=== PATIENT | female | born 1980 | race Caucasian/White ===

== ENCOUNTER 2016-07-06 21:45 | Emergency (ER) | payer MEDICAID, OTHER ==
[~2016-07-06 21:45] MED LIST: /MOM400 PO; /ONDA4TA OR; /OXYB10XLT PO; ALLE25CA OR; AMBI10TA PO; ANBEEL MT; ASPI1TAB PO; ASPI325T PO; ATIV1TAB10 PO; B COTAB5 PO; BACITAB3 PO; BENA25CA2 PO; BENT10CA PO; CEFD1CAP8 PO; CEFD300CAP PO; CYMB1CAP PO; DICL13PA TOP; DIPH50CA PO; DIPH50TA3 PO; DOXY50CA OR; DULC10SU2 PO; DULC10SU2 PR; DULC5TAB PO; ECOT81TA5 PO; FLAG250T OR; FLAG500T PO; FLON0.054; FLON1SPR; FOLI1TAB2 PO; HEPA1INJ IV; HYDR25T PO; IBUP600T OR; IBUPOTC PO; IRON CR PO; K-TA10TA2 PO; KLON0.5T PO; LACT10SO29 PO; LEXA1TAB PO; LIDO5DIS36 TD; LIORESAL PO; LYRI150C PO; LYRI200C PO; MAXA5TAB OR; MICR10CA PO; MILKSUS PO; MIRA3350 PO; MOM30SS PO; MYLI40DR PO; NORCOTAB PO; OXYC10TA12 PO; OXYC15TA76 PO; OXYC1SOL PO; OXYC1TAB55 PO; OXYC20TA21 PO; OXYC30TA4 PO; OXYIR PO; PAXI10TA2 PO; PERC5TAB8 OR; PERCOCET PO; PHEN1SUP6 PR; PHEN25IN3 PO; PHEN25IN3 PR; PROBCAP4 PO; PROM-190 PO; PROT1TAB2 PO; PROTPAK PO; PROZ20CA11 PO; PYRI200T5 PO; REGL10TA6 PO; REGLAN; ROCE1INJ IV; ROXI15TA12 PO; SERO1TAB3 PO; SIMV20TA2 PO; SKEL-29 PO; SLF IV; SUCR1SUS PO; TRAZ100T4 PO; TRAZ50TA4 PO; TYLE325T5 PO; TYLE650T30 PO; VALI5TAB PO; VANC1CAP6 PO; VANC250C2 PO; VANC50SOL PO; VITA1TAB23 PO; XANAFLEX PO; ZOST0.25 TOP; [UNRECOGNIZED DRUG - CODE] TOP
[2016-07-07] MEDS ORDERED: predniSONE 20 MG TAB As Ordered ONE (01:39)
[2016-07-07] MEDS ORDERED: diazePAM 5 MG TAB As Ordered ONE (01:40)
[2016-07-07] MEDS ORDERED: OXYCODONE/APAP 5MG/325MG(BULK) 1 TAB TAB As Ordered ONE (02:49)
--- NOTE | 2016-07-07 03:05 | EDDOCDS ---
Physician Documentation [facility] Name: Meir Alan Age: 35 yrs Sex: Female : 1980 Arrival Date: 07/06/2016 Time: 21:45 Bed 7 Private [facility]: [facility] Disposition: 07/07/16 02:45 Discharged to Home/Self Care. Impression: Low back pain. - Condition is Stable. - Discharge Instructions: Back Pain, Adult, Back Pain, Adult, [id number]. - Prescriptions for Percocet 5- 325 mg Oral Tablet - take 1 tablet by ORAL route every 6 hours As needed MDD: 4 tabs; 20 tablet. Valium 5 mg Oral Tablet - take 1 tablet by ORAL route every 8 hours As needed MDD: 3 tabs; 20 tablet. Prednisone 20 mg Oral Tablet - take 2 tablet by ORAL route once daily for 5 days; 10 tablet. - Medication Reconciliation, Local Pharmacy Hours form. - Follow up: [facility]; When: Call to arrange an appointment; Reason: Continuance of care. - Problem is an acute exacerbation. - Symptoms have improved. Historical: - Allergies: all cillins; Azithromycin; betamethasone; Bactrim; Betamethasone Valerate; CEPHALOSPORINS; Cipro PO; Ciprofloxacin; Darvocet-N 100; Darvon; Demerol; Gentamicin; Keflex; Macrobid; Morphine; PENICILLINS; Rocephin; SULFA (SULFONAMIDES); Toradol; Tramadol HCl; Vancomycin; Zofran; - Home Meds: 1. Lyrica 200mg Oral 3 times per day 2. Tylenol 325 mg Oral tab 2 tabs every 6 hours 3. aspirin 325 mg Oral tab 1 tab once daily (Last dose: 07/06/2016 17:00) 4. escitalopram oxalate 10 mg oral tab 1 tab once daily 5. propantheline 15 mg Oral tab 1 tab 3 times per day - PMHx: Anxiety; breast and cervical cancer; c diff; Cardiac arrest; freq pylo; hydronephrosis and ureter; infected port; Interstitial Cystitis; Kidney stones; [place] x2; Migraine Headaches; neurogenic bladder; Pseudoseizures; TIA's; UTi's; - PSHx: Bladder pacemaker; Hysterectomy; cystoscopy; kidney stents; Laparoscopy; Cholecystectomy; Lithotripsy; PFO closure; infusaport; ruptured infusa port with removal; - Social history: Smoking status: Patient uses tobacco products, current some day smoker. No barriers to communication noted, The patient speaks fluent Kazakh, Speaks appropriately for age. - Family history: No immediate family members are acutely ill. - : The pt / caregiver states he / she is not on anticoagulants. Home medication list is obtained from the patient. - Exposure Risk Screening:: None identified. 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 4 in. (162.56 cm) (R); Pain 9/10; 07/07 02:50 BP 104 / 62; Pulse 79; Resp 18; Temp 96.9(O); Pulse Ox 98% on R/A; Pain 8/10; al 07/06 21:47 Body Mass Index 20.60 (54.43 kg, 162.56 cm) gr2 MDM: 01:26 predniSONE 40 mg PO once; administer with food or milk ordered. mm11 01:26 Diazepam 5 mg PO once ordered. mm11 01:27 Abdomen, Flat\E\Upright,PA Chest Ordered. EDMS 01:39 [facility] Payment Agreement was scanned into [employer] and attached to record. jp5 01:39 Financial registration complete. jp5 02:43 oxyCODONE-acetaminophen 4 pack 5 mg-325 mg 1 packets PO once; Dispense with pt, take as mm11 per instruction on package ordered. Administered Medications: 01:50 Drug: Diazepam 5 mg [diazepam 5 mg tablet (1 tabs)] Route: PO; mv5 02:56 Follow up: Response: No Adverse Reaction mv5 02:02 Drug: predniSONE 40 mg [prednisone 20 mg tablet (2 tabs)] Route: PO; mv5 02:56 Follow up: Response: No Adverse Reaction mv5 02:58 Drug: oxyCODONE-acetaminophen 4 pack 1 packets [oxycodone-acetaminophen 5 mg-325 mg mv5 tablet (1 tabs)] {Co-Signature: lyla (Lary Clifton RN).} Route: PO; Signatures: Dispatcher [employer] Mauricio Phelps, DO mm11 Liliam Roland, RN RN sls1 Oscar Merritt jp5 Betty Weldon RN RN mv5 Lary arita The chart was reviewed and I authenticate all verbal orders and agree with the evaluation and treatment provided.Attachments: 01:39 [facility] Payment Agreement jp5 MTDD
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
--- NOTE | 2016-07-07 08:04 | REP ---
Clinical: Pain . Comparison: 08/21/2015 . Technique: PA and lateral. Findings: The mediastinum and cardiac silhouette are normal. The lung solis are clear and without acute consolidation, effusion, or pneumothorax. The skeletal structures are intact and normal. Impression: 1. No acute cardiopulmonary process. Signed by Irvin Buck MD 07/07/2016 07:55 A
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
--- NOTE | 2016-07-09 04:05 | EDDOCDS ---
Physician Documentation [facility] Name: Meir Alan Age: 35 yrs Sex: Female : 1980 Arrival Date: 07/06/2016 Time: 21:45 Bed 7 Private MD: [facility] Disposition: 07/07/16 02:45 Discharged to Home/Self Care. Impression: Low back pain. - Condition is Stable. - Discharge Instructions: Back Pain, Adult, Back Pain, Adult, [id number]. - Prescriptions for Percocet 5- 325 mg Oral Tablet - take 1 tablet by ORAL route every 6 hours As needed MDD: 4 tabs; 20 tablet. Valium 5 mg Oral Tablet - take 1 tablet by ORAL route every 8 hours As needed MDD: 3 tabs; 20 tablet. Prednisone 20 mg Oral Tablet - take 2 tablet by ORAL route once daily for 5 days; 10 tablet. - Medication Reconciliation, Local Pharmacy Hours form. - Follow up: [facility]; When: Call to arrange an appointment; Reason: Continuance of care. - Problem is an acute exacerbation. - Symptoms have improved. Historical: - Allergies: all cillins; Azithromycin; betamethasone; Bactrim; Betamethasone Valerate; CEPHALOSPORINS; Cipro PO; Ciprofloxacin; Darvocet-N 100; Darvon; Demerol; Gentamicin; Keflex; Macrobid; Morphine; PENICILLINS; Rocephin; SULFA (SULFONAMIDES); Toradol; Tramadol HCl; Vancomycin; Zofran; - Home Meds: 1. Lyrica 200mg Oral 3 times per day 2. Tylenol 325 mg Oral tab 2 tabs every 6 hours 3. aspirin 325 mg Oral tab 1 tab once daily (Last dose: 07/06/2016 17:00) 4. escitalopram oxalate 10 mg oral tab 1 tab once daily 5. propantheline 15 mg Oral tab 1 tab 3 times per day - PMHx: Anxiety; breast and cervical cancer; c diff; Cardiac arrest; freq pylo; hydronephrosis and ureter; infected port; Interstitial Cystitis; Kidney stones; [place] x2; Migraine Headaches; neurogenic bladder; Pseudoseizures; TIA's; UTi's; - PSHx: Bladder pacemaker; Hysterectomy; cystoscopy; kidney stents; Laparoscopy; Cholecystectomy; Lithotripsy; PFO closure; infusaport; ruptured infusa port with removal; - Social history: Smoking status: Patient uses tobacco products, current some day smoker. No barriers to communication noted, The patient speaks fluent Uzbek, Speaks appropriately for age. - Family history: No immediate family members are acutely ill. - : The pt / caregiver states he / she is not on anticoagulants. Home medication list is obtained from the patient. - Exposure Risk Screening:: None identified. MEDICAL RECEPTION SPECIALIST: 07/06 22:03 LMP N/A - Hysterectomy sls1 Vital Signs: 21:47 BP 111 / 68; Pulse 99; Resp 18 S; Temp 99.1(O); Pulse Ox 99% on R/A; Weight 54.43 kg / gr2 120 lbs (R); Height 5 ft. 4 in. (162.56 cm) (R); Pain 9/10; 07/07 02:50 BP 104 / 62; Pulse 79; Resp 18; Temp 96.9(O); Pulse Ox 98% on R/A; Pain 8/10; al 07/06 21:47 Body Mass Index 20.60 (54.43 kg, 162.56 cm) gr2 MDM: 01:26 predniSONE 40 mg PO once; administer with food or milk ordered. mm11 01:26 Diazepam 5 mg PO once ordered. mm11 01:27 Abdomen, Flat\E\Upright,PA Chest Ordered. EDMS 01:39 [facility] Payment Agreement was scanned into [employer] and attached to record. jp5 01:39 Financial registration complete. jp5 02:43 oxyCODONE-acetaminophen 4 pack 5 mg-325 mg 1 packets PO once; Dispense with pt, take as mm11 per instruction on package ordered. 12:30 T-Sheet-- Draft Copy was scanned into [employer]zzle and attached to record. gb Administered Medications: 01:50 Drug: Diazepam 5 mg [diazepam 5 mg tablet (1 tabs)] Route: PO; mv5 02:56 Follow up: Response: No Adverse Reaction mv5 02:02 Drug: predniSONE 40 mg [prednisone 20 mg tablet (2 tabs)] Route: PO; mv5 02:56 Follow up: Response: No Adverse Reaction mv5 02:58 Drug: oxyCODONE-acetaminophen 4 pack 1 packets [oxycodone-acetaminophen 5 mg-325 mg mv5 tablet (1 tabs)] {Co-Signature: lyla (Lary Clifton RN).} Route: PO; Signatures: Dispatcher MedHost EDDanette Vega, Reg Reg gb Mauricio Benitez, DO DO mm11 Liliam Roland, RN RN sls1 Oscar Merritt jp5 Betty Weldon RN RN mv5 Lary arita The chart was reviewed and I authenticate all verbal orders and agree with the evaluation and treatment provided.Attachments: 01:39 [facility] Payment Agreement jp5 12:30 T-Sheet-- Draft Copy gb Chart Complete MTDD
--- NOTE | 2016-07-09 04:05 | EDDOCDS ---
Physician Documentation [facility] Name: Meir Alan Age: 35 yrs Sex: Female : 1980 Arrival Date: 07/06/2016 Time: 21:45 Bed 7 Private MD: [facility] Disposition: 07/07/16 02:45 Discharged to Home/Self Care. Impression: Low back pain. - Condition is Stable. - Discharge Instructions: Back Pain, Adult, Back Pain, Adult, [id number]. - Prescriptions for Percocet 5- 325 mg Oral Tablet - take 1 tablet by ORAL route every 6 hours As needed MDD: 4 tabs; 20 tablet. Valium 5 mg Oral Tablet - take 1 tablet by ORAL route every 8 hours As needed MDD: 3 tabs; 20 tablet. Prednisone 20 mg Oral Tablet - take 2 tablet by ORAL route once daily for 5 days; 10 tablet. - Medication Reconciliation, Local Pharmacy Hours form. - Follow up: [facility]; When: Call to arrange an appointment; Reason: Continuance of care. - Problem is an acute exacerbation. - Symptoms have improved. Historical: - Allergies: all cillins; Azithromycin; betamethasone; Bactrim; Betamethasone Valerate; CEPHALOSPORINS; Cipro PO; Ciprofloxacin; Darvocet-N 100; Darvon; Demerol; Gentamicin; Keflex; Macrobid; Morphine; PENICILLINS; Rocephin; SULFA (SULFONAMIDES); Toradol; Tramadol HCl; Vancomycin; Zofran; - Home Meds: 1. Lyrica 200mg Oral 3 times per day 2. Tylenol 325 mg Oral tab 2 tabs every 6 hours 3. aspirin 325 mg Oral tab 1 tab once daily (Last dose: 07/06/2016 17:00) 4. escitalopram oxalate 10 mg oral tab 1 tab once daily 5. propantheline 15 mg Oral tab 1 tab 3 times per day - PMHx: Anxiety; breast and cervical cancer; c diff; Cardiac arrest; freq pylo; hydronephrosis and ureter; infected port; Interstitial Cystitis; Kidney stones; [place] x2; Migraine Headaches; neurogenic bladder; Pseudoseizures; TIA's; UTi's; - PSHx: Bladder pacemaker; Hysterectomy; cystoscopy; kidney stents; Laparoscopy; Cholecystectomy; Lithotripsy; PFO closure; infusaport; ruptured infusa port with removal; - Social history: Smoking status: Patient uses tobacco products, current some day smoker. No barriers to communication noted, The patient speaks fluent Faroese, Speaks appropriately for age. - Family history: No immediate family members are acutely ill. - : The pt / caregiver states he / she is not on anticoagulants. Home medication list is obtained from the patient. - Exposure Risk Screening:: None identified. INSTRUCTOR PHYSICAL: 07/06 22:03 LMP N/A - Hysterectomy sls1 Vital Signs: 21:47 BP 111 / 68; Pulse 99; Resp 18 S; Temp 99.1(O); Pulse Ox 99% on R/A; Weight 54.43 kg / gr2 120 lbs (R); Height 5 ft. 4 in. (162.56 cm) (R); Pain 9/10; 07/07 02:50 BP 104 / 62; Pulse 79; Resp 18; Temp 96.9(O); Pulse Ox 98% on R/A; Pain 8/10; al 07/06 21:47 Body Mass Index 20.60 (54.43 kg, 162.56 cm) gr2 MDM: 01:26 predniSONE 40 mg PO once; administer with food or milk ordered. mm11 01:26 Diazepam 5 mg PO once ordered. mm11 01:27 Abdomen, Flat\E\Upright,PA Chest Ordered. EDMS 01:39 [facility] Payment Agreement was scanned into [employer] and attached to record. jp5 01:39 Financial registration complete. jp5 02:43 oxyCODONE-acetaminophen 4 pack 5 mg-325 mg 1 packets PO once; Dispense with pt, take as mm11 per instruction on package ordered. 12:30 T-Sheet-- Draft Copy was scanned into [employer] and attached to record. gb Administered Medications: 01:50 Drug: Diazepam 5 mg [diazepam 5 mg tablet (1 tabs)] Route: PO; mv5 02:56 Follow up: Response: No Adverse Reaction mv5 02:02 Drug: predniSONE 40 mg [prednisone 20 mg tablet (2 tabs)] Route: PO; mv5 02:56 Follow up: Response: No Adverse Reaction mv5 02:58 Drug: oxyCODONE-acetaminophen 4 pack 1 packets [oxycodone-acetaminophen 5 mg-325 mg mv5 tablet (1 tabs)] {Co-Signature: lyla (Lary Clifton RN).} Route: PO; Signatures: Dispatcher MedHost EDDanette Vega, Reg Reg gb Mauricio Benitez, DO DO mm11 Liliam Roland, RN RN sls1 Oscar Merritt jp5 Betty Weldon RN RN mv5 Lary arita The chart was reviewed and I authenticate all verbal orders and agree with the evaluation and treatment provided.Attachments: 01:39 [facility] Payment Agreement jp5 12:30 T-Sheet-- Draft Copy gb Chart Complete MTDD
== END 2016-07-07 03:04 | disposition home or self-care (01) ==
LOC: M ED 21:45
DX: M54.5 Low back pain (principal); F41.9 Anxiety disorder, unspecified; Z85.3 Personal history of malignant neoplasm of breast; Z85.41 Personal history of malignant neoplasm of cervix uteri; Z86.19 Personal history of other infectious and parasitic diseases; Z86.74 Personal history of sudden cardiac arrest; N10 Acute pyelonephritis; I25.2 Old myocardial infarction; Z86.73 Personal history of transient ischemic attack (TIA), and cerebral infarction without residual deficits; N30.10 Interstitial cystitis (chronic) without hematuria; N13.30 Unspecified hydronephrosis; G40.89 Other seizures; Z95.0 Presence of cardiac pacemaker; Z96.0 Presence of urogenital implants; Z72.0 Tobacco use; Z79.82 Long term (current) use of aspirin; Z79.899 Other long term (current) drug therapy; Z88.0 Allergy status to penicillin; Z88.1 Allergy status to other antibiotic agents; Z88.5 Allergy status to narcotic agent; Z88.2 Allergy status to sulfonamides; Z88.8 Allergy status to other drugs, medicaments and biological substances; Z88.6 Allergy status to analgesic agent

== ENCOUNTER 2016-12-29 23:15 | Inpatient (IN) | payer OTHER ==
[~2016-12-29] VITALS: Ht 162.6 cm; Wt 68.1 kg
[~2016-12-29 23:15] MED LIST changes: +BACITAB PO; -BACITAB3 PO; -FOLI1TAB2 PO; +FOLI1TAB4 PO; +HYDR-3363 PO; -HYDR25T PO; -LIDO5DIS36 TD; +LIDO5DIS41 TD; +OXYC-403 PO; -OXYC1TAB55 PO; -OXYC20TA21 PO; +OXYC20TA40 PO; +PAXI10TA12 PO; -PAXI10TA2 PO; +PYRI1TAB5 PO; -PYRI200T5 PO; -SKEL-29 PO; +SKEL800T97 PO; +TRAZ-136 PO; -TRAZ100T4 PO; +TRAZ50TA11 PO; -TRAZ50TA4 PO
[2016-12-30 01:30] LABS: MICROSCOPIC INDICATED? MAN YES (NO)
[2016-12-30 01:38] LABS: SQUAMOUS EPITHELIAL CELL URINE SMALL AMOUNT /hpf (SMALL AMT)
[2016-12-30 01:39] LABS: BACTERIA, URINE SMALL AMOUNT; HYALINE CAST, URINE NONE SEEN /lpf (0-1); MICROSCOPIC EXAM PERFORMED
[2016-12-30] MEDS ORDERED: NS 1,000 ML IV ONE (05:30)
[2016-12-30] MEDS ORDERED: HYDROmorphone HCL 1 MG/ML SYRINGE (J1170) IV ONE (06:15)
[2016-12-30] MEDS ORDERED: GASTROGRAFIN SOLUTION 30ML (Q9963) PO ONE ×2 (07:00)
[2016-12-30 07:29] LABS: ALBUMIN/GLOBULIN RATIO 1.08 (1.00-1.93); ALKALINE PHOSPHATASE 148 U/L (45-117); ALT/SGPT 116 U/L (12-78); AMYLASE 79 U/L (25-115); ANION GAP 8 MEQ/L (8-16); AST/SGOT 34 U/L (15-37); BILIRUBIN,DIRECT 0.2 MG/DL (0.0-0.2); BILIRUBIN,TOTAL 0.7 MG/DL (0.2-1.0); BLOOD UREA NITROGEN 17 MG/DL (7-18); CALCIUM LEVEL 9.3 MG/DL (8.5-10.1); CARBON DIOXIDE LEVEL 24 MEQ/L (21-32); CHLORIDE LEVEL 107 MEQ/L (98-107); CREATININE FOR GFR 0.72 MG/DL (0.55-1.02); GLOMERULAR FILTRATION RATE > 60.0 (>60); GLUCOSE, FASTING 90 MG/DL (70-105); POTASSIUM SERUM 3.7 MEQ/L (3.5-5.1); SODIUM LEVEL 139 MEQ/L (136-145); TOTAL PROTEIN 7.7 GM/DL (6.4-8.2)
[2016-12-30] MEDS ORDERED: PROMETHAZINE INJ 25 MG/ML VIAL (J2550) IM ONE (07:45)
[2016-12-30] MEDS ORDERED: HYDROmorphone HCL 1 MG/ML SYRINGE (J1170) SC ONE (07:45)
[2016-12-30 08:06] LABS: BASO % 0.5 % (0.0-1.0); EOS # 0.1 K/mm3 (0.0-0.50); LARGE UNSTAINED CELL # 0.1 K/mm3 (0.0-0.4); LARGE UNSTAINED CELL % 1.4 % (0.0-4.0); LYMPH # 2.5 K/mm3 (1.5-4.5); LYMPH % 37.1 % (24.0-44.0); MEAN CORPUSCULAR HEMOGLOBIN 32.4 pg (27.0-33.0); MEAN CORPUSCULAR HGB CONC 35.4 g/dl (32.0-36.5); MEAN CORPUSCULAR VOLUME 91.6 fl (80.0-96.0); MONO # 0.4 K/mm3 (0.0-0.8); MONO % 5.1 % (0.0-5.0); NEUTROPHILS # 3.7 K/mm3 (1.8-7.7); NEUTROPHILS % 53.9 % (36.0-66.0); PLATELET COUNT, AUTOMATED 266 k/mm3 (150-450); RED CELL DISTRIBUTION WIDTH 12.6 % (11.5-14.5); WHITE BLOOD COUNT 6.8 K/mm3 (4.0-10.0)
[2016-12-30] MEDS ORDERED: VITATAB11 PO (08:22)
[2016-12-30] MEDS ORDERED: BENA25CA4 PO (08:22)
[2016-12-30] MEDS ORDERED: IRON65TA PO (08:22)
[2016-12-30] MEDS ORDERED: FOLI1TAB4 PO (08:22)
[2016-12-30] MEDS ORDERED: FAMOTIDINE IV BAG 20 MG in APPROPRIATE DILUENT 1 EA IV SCH (09:00)
--- NOTE | 2016-12-30 09:03 | REP ---
CT study abdomen pelvis without IV but with oral contrast: History: Pancreatitis. Right flank and lower abdominal pain. Comparison CT study: January 23, 2016. CT findings: There is an intra-atrial septal closure device visible at the base of the heart. Preliminary first responder radiograph also shows clips in right upper quadrant and a implanted trans sacral nerve stimulator projecting in the left lower quadrant. The bowel gas pattern is unremarkable. The lung bases are essentially clear except for some minimal linear fibrosis. The liver and the spleen are normal in size and homogeneous in texture. No adrenal lesion is seen on either side. No pancreatic enlargement mass or cyst is seen. There is moderate left-sided hydronephrosis again seen. No stone is appreciated. The left-sided hydronephrosis is unchanged from prior CT studies including June 08, 2015. No retroperitoneal mass or adenopathy is seen. A normal appendix is noted in the right pelvis. The uterus is surgically absent. Urinary bladder is unremarkable. Small and large intestinal bowel loops are unremarkable. No abdominal wall defect is seen. No bony destructive lesion is observed. There are some degenerative changes at the symphysis pubis. Impression: 1. Stable left-sided hydronephrosis without visible stone. 2. Status post hysterectomy, atrial septal defect closure, cholecystectomy, and transsacral neurostimulator placement. Normal appendix seen. No acute abdominal or pelvic abnormality. Signed by Kyle Rios MD 12/30/2016 09:12 A
[2016-12-30] MEDS ORDERED: ACETAMINOPHEN TAB 650MG DOSE (2X325MG) PO PRN (10:30)
[2016-12-30] MEDS: HYDROmorphone HCL 1 MG/ML SYRINGE (J1170) IV PRN ×4 (11:59→22:19)
[2016-12-30] MEDS: KCL 20MEQ in NS 1000ML 1,000 ML IV SCH ×3 (12:04→22:20)
--- NOTE | 2016-12-30 12:54 | REP ---
ULTRASOUND OF THE ABDOMEN: Real-time sonographic evaluation of the abdomen performed. Comparison made with multiple prior ultrasound and CT exams. Patient is status post cholecystectomy. There is no intrahepatic or extrahepatic biliary dilatation, common bile duct measuring 4 mm in diameter. Liver demonstrates homogenous echotexture with no definite mass. Pancreas as visualized is grossly unremarkable, but it is not completely visualized due to overlying bowel gas. Spleen is normal in size with no intrinsic abnormality, having a length of 9.3 cm. Kidneys are normal in size and echotexture, right kidney measuring 11.3 x 4.5 x 3.4 cm and left kidney 10.8 x 4.4 x 3.7 cm. There is no hydronephrosis. There is again an extrarenal pelvis of the left kidney which is seen on multiple prior exams. The abdominal aorta is normal in caliber with no aneurysm. Maximum AP diameter is in the mid aspect 2.5 cm in diameter. No ascites is seen. IMPRESSION: Status post cholecystectomy. There is again evidence of an extrarenal pelvis of the left kidney without hydronephrosis. No ascites or other significant abnormality. Signed by Hammad Arnold MD 12/30/2016 05:09 P
--- NOTE | 2016-12-30 12:55 | REP ---
CHEST: Single view of the chest is performed. There is a right central venous catheter with the tip in the superior vena cava. There is no pneumothorax. There is no acute infiltrate. The heart is normal in size. IMPRESSION: Right central venous catheter with the tip in the superior vena cava. No pneumothorax. Signed by Hammad Arnold MD 12/30/2016 05:10 P
[2016-12-30 13:45] VITALS: BP 134/71
[2016-12-30] MEDS: SENOKOT S TAB PO SCH ×2 (14:00→22:16)
[2016-12-30] MEDS ORDERED: diphenhydrAMINE 25 MG CAP PO PRN (14:30)
[2016-12-30] MEDS: LACTOBACILLUS ACIDOPHILUS CAP (BACID) PO SCH ×3 (15:09→22:15)
[2016-12-30] MEDS: FERROUS SULFATE 325MG TAB PO SCH (15:09)
[2016-12-30] MEDS: HEPARIN SOD (PORCINE) 5000 UNITS/ML VIAL SC SCH ×2 (15:09→22:17)
[2016-12-30] MEDS: FAMOTIDINE IV BAG 20 MG in APPROPRIATE DILUENT 1 EA IV SCH (15:09)
[2016-12-30] MEDS: FOLIC ACID 1 MG TAB PO SCH (15:16)
[2016-12-30] MEDS: VITAMIN B COMPLEX/VIT C CAP PO SCH (15:39)
--- NOTE | 2016-12-30 16:16 | RO ---
DATE OF PROCEDURE: 12/30/2016 PREPROCEDURE DIAGNOSIS: Poor venous access and pancreatitis. POSTPROCEDURE DIAGNOSIS: Poor venous access and pancreatitis. PROCEDURE: Right IJ triple lumen central line. SURGEON: Dr. Nohelia Gray WAREHOUSE ASSOCIATE: None. ANESTHESIA: 1% local lidocaine. SEDATION: None. VENTILATION: 3 liters nasal cannula. ESTIMATED BLOOD LOSS: 10 mL. DESCRIPTION OF PROCEDURE: The patient was placed in the supine position. The right side of the patient's neck was cleaned with Chloraprep. The patient was covered in a sterile manner. A sterile probe cover was used. The patient's right IJ was located. Subsequently, subcutaneous lidocaine was injected with ultrasound guidance and needle was inserted. Flash of blood was obtained. Needle was inserted with ultrasound guidance, flash of blood was obtained. Guidewire was inserted through the needle. The needle was removed. Guidewire position was confirmed with ultrasound in the patient's right IJ. Subsequently, triple lumen central line was placed via Seldinger technique. Site was dilated and triple lumen central line was inserted via Seldinger technique. Guidewire was removed. All three ports of the line were flushed and triple lumen central line was secured with clamps and stitches. X-ray was ordered for confirmation. Dressing was placed. The patient tolerated the procedure with no complications.
[2016-12-30] MEDS: PREGABALIN 100 MG CAP (LYRICA) PO SCH ×2 (16:36→22:16)
[2016-12-30 22:00] VITALS: BP 104/59
[2016-12-30] MEDS: PROMETHAZINE INJ 25 MG/ML VIAL (J2550) IM PRN (22:17)
--- NOTE | 2016-12-30 23:00 | HPE ---
DATE OF ADMISSION: 12/30/2016 PRIMARY CARE PROVIDER: Isiah Ackerman DO CHIEF COMPLAINT: 1. Abdominal pain. 2. Bilateral flank pain. 3. Nausea, vomiting, diarrhea. 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 Reported chills, but no fever detected. Maximum temperature (T-max) 99.8. Reported vomiting over the last 24 hours five times, nonbloody, nonbilious, with watery diarrhea for five times as well. As per patient, does not appear to be her normal Clostridium (C) difficile diarrhea. Denies any chest pain, pressure or discomfort. Denies fevers or chills. In the emergency room, attempt was made to start the patient on intravenous (IV). Unfortunately, was not able to. Subsequently, triple lumen central internal jugular (IJ) line was placed. The patient was found to have elevated lipase. Subsequently admitted for pancreatitis. Patient denies alcohol history. Has history of cholecystectomy. ALLERGIES: Report allergies to: 1. CLINDAMYCIN. 2. NITROFURANTOIN 3. PENICILLIN 4. QUINOLONE 5. DOXYCYCLINE 6. MEPERIDINE 7. MORPHINE 8. PROPOXYPHENE 9. GENTAMICIN 10. TORADOL 11. TRAMADOL 12. KEFLEX 13. SULFA ANTIBIOTICS 14. PROMETHAZINE 15. BETAMETHASONE 16. VANCOMYCIN 17. ZOFRAN PAST MEDICAL HISTORY: 1. History of endometriosis. 2. Hyperthyroidism that was resolved. 3. Transient ischemic attack (TIA). 4. Tachycardia. 5. Migraine headache. 6. Recurrent emesis. 7. Colitis. 8. Methicillin-resistant Staphylococcus aureus (MRSA). 9. Clostridium (C) difficile. 10. Neurogenic bladder. 11. Chronic abdominal pain. 12. Anxiety. 13. Miscarriages. 14. Nephrolithiasis. 15. History of recurrent pyelonephritis. 16. Hydronephrosis. 17. Hydroureter. 18. Fallopian tubes and ovarian cysts with cervical uterine dysplasia. 19. History of myocardiac injuries. 20. Cardiac arrest in the past. 21. Neuropathic pain. PAST SURGICAL HISTORY: 1. Right breast lumpectomy. 2. Hysterectomy. 3. Right laparoscopic ovarian cyst removal. 4. Patent foramen ovale repair. 5. Right carpal metatarsal relocation. 6. [id number]. 7. Cystoscopy. 8. Lithotripsy. 9. Cholecystectomy. 10. (C) section. 11. Dilation and curettage. 12. Esophagogastroduodenoscopy (EGD) and colonoscopies in the past. FAMILY HISTORY: Father with melanoma. Mother with breast cancer. SOCIAL HISTORY: Patient smokes 4 to 5 cigarettes per day for the past five years. Drinks only on holidays. Last alcoholic beverage intake was on . Denies any illicit drug use. REVIEW OF SYSTEMS: Reported epigastric and right upper quadrant abdominal pain, bilateral flank pain and nausea, vomiting and diarrhea. All other review of systems were negative. HOME MEDICATIONS: - vitamin B complex one tablet by mouth daily - Benadryl 25 mg by mouth every 4 hours as needed - folic acid 1 mg by mouth daily - iron 325 mg by mouth daily - Lyrica 200 mg by mouth three times a day VITAL SIGNS: Temperature 97.1, pulse 73, respirations 18, blood pressure 100/65, pulse oximetry 96% on room air. GENERAL: Patient alert and oriented times three. No acute distress. HEENT: Normocephalic, atraumatic. PULMONARY: Bilateral clear to auscultation. CARDIAC: Regular rate and rhythm. Normal S1, S2. ABDOMEN: Epigastric tenderness. Bilateral flank mildly tender. Normal bowel sounds. No rebound. No guarding. No White signs. EXTREMITIES: No clubbing, cyanosis or edema. Able to move all four extremities. NEUROLOGIC: No focal deficits. LABORATORY: WBC 6.8, hemoglobin and hematocrit (H and H) 14.9/42.1, platelets 266. Chemistry: Sodium 139, potassium 3.7, chloride 107, bicarbonate 24, BUN 17, creatinine 0.73, lipase 1155. ASSESSMENT AND PLAN: This is a 36-year-old female patient with underlying medical history of endometriosis, history of resolved hyperthyroidism, transient ischemic attack (TIA), migraine headache, recurrent emesis, colitis, Methicillin-resistant Staphylococcus aureus (MRSA), Clostridium (C) difficile, neurogenic bladder, chronic abdominal pain, anxiety, miscarriages, nephrolithiasis, recurrent hydronephrosis with hydroureter, ovarian cysts, myocardiac injuries, uterine dysplasia, recurrent urinary tract infection (UTI), neuropathic pain, admitted for acute pancreatitis with nausea, vomiting, abdominal pain, and diarrhea. PROBLEMS: 1. Nausea, vomiting and diarrhea. Likely secondary to acute pancreatitis. Follow up gastrointestinal (GI) panel. Follow up electrolytes. Nothing by mouth. Intravenous (IV) fluids. Pepcid. Pain medication as prescribed. 2. Left hydroureter with no stone. Urinalysis (UA) is negative. CT appreciated. Case discussed with Dr. Cerrato. Recommend outpatient follow up for repeat of imaging study for resolution. Likely, patient passed a stone which was not visible on the images. Given that patient had normal kidney functions, will recommend outpatient followup as per Dr. Cerrato. IV fluids for hydration. 3. Deep venous thrombosis (DVT) prophylaxis. Heparin subcutaneously. 4. Transaminitis. Likely associated with acute pancreatitis. Patient has no bilirubin elevation. Ultrasound of the abdomen appreciated. CT has been appreciated. DISPOSITION PLANNING. Pending clinical improvement. Monitor. Advance diet as tolerated.
[2016-12-31] MEDS: FAMOTIDINE IV BAG 20 MG in APPROPRIATE DILUENT 1 EA IV SCH ×2 (02:20→14:58)
[2016-12-31] MEDS: HYDROmorphone HCL 1 MG/ML SYRINGE (J1170) IV PRN ×7 (02:21→23:05)
[2016-12-31] MEDS: KCL 20MEQ in NS 1000ML 1,000 ML IV SCH ×4 (04:18→19:59)
[2016-12-31 06:00] VITALS: BP 106/65
[2016-12-31] MEDS: HEPARIN SOD (PORCINE) 5000 UNITS/ML VIAL SC SCH ×3 (06:15→22:00)
[2016-12-31 06:27] LABS: MEAN CORPUSCULAR HEMOGLOBIN 32.1 pg (27.0-33.0); MEAN CORPUSCULAR HGB CONC 35.2 g/dl (32.0-36.5); MEAN CORPUSCULAR VOLUME 91.2 fl (80.0-96.0); RED CELL DISTRIBUTION WIDTH 12.4 % (11.5-14.5)
[2016-12-31 07:02] LABS: ALBUMIN 2.9 GM/DL (3.2-5.2); ALBUMIN/GLOBULIN RATIO 1.16 (1.00-1.93); ALKALINE PHOSPHATASE 109 U/L (45-117); ALT/SGPT 69 U/L (12-78); ANION GAP 9 MEQ/L (8-16); AST/SGOT 28 U/L (15-37); BILIRUBIN,TOTAL 0.8 MG/DL (0.2-1.0); BLOOD UREA NITROGEN 11 MG/DL (7-18); CALCIUM LEVEL 7.6 MG/DL (8.5-10.1); CARBON DIOXIDE LEVEL 23 MEQ/L (21-32); CHLORIDE LEVEL 113 MEQ/L (98-107); CREATININE FOR GFR 0.64 MG/DL (0.55-1.02); GLOMERULAR FILTRATION RATE > 60.0 (>60); GLUCOSE, FASTING 68 MG/DL (70-105); MAGNESIUM LEVEL 1.7 MG/DL (1.8-2.4); POTASSIUM SERUM 4.5 MEQ/L (3.5-5.1); SODIUM LEVEL 145 MEQ/L (136-145); T UPTAKE 38 % (30-39); THYROXINE (T4) 7.9 UG/DL (4.5-12.0); TOTAL PROTEIN 5.4 GM/DL (6.4-8.2)
[2016-12-31] MEDS ORDERED: MAG SULF 1GM/100ML (MAG RUN) 1 GM in APPROPRIATE DILUENT 1 EA IV ONE (09:00)
[2016-12-31] MEDS: LACTOBACILLUS ACIDOPHILUS CAP (BACID) PO SCH ×3 (09:45→20:01)
[2016-12-31] MEDS: VITAMIN B COMPLEX/VIT C CAP PO SCH (09:46)
[2016-12-31] MEDS: PREGABALIN 100 MG CAP (LYRICA) PO SCH ×3 (09:46→20:01)
[2016-12-31] MEDS: SENOKOT S TAB PO SCH ×3 (09:47→21:00)
[2016-12-31] MEDS: FERROUS SULFATE 325MG TAB PO SCH (09:47)
[2016-12-31] MEDS: FOLIC ACID 1 MG TAB PO SCH (09:47)
[2016-12-31] MEDS ORDERED: CALCIUM GLUCONATE 1,000 MG in D5W MINI-BAG PLUS 100 ML IV ONE (10:00)
[2016-12-31] MEDS: PROMETHAZINE INJ 25 MG/ML VIAL (J2550) IM PRN ×2 (12:44→20:01)
[2016-12-31 14:00] VITALS: BP 124/71
--- NOTE | 2016-12-31 16:25 | IPN ---
DATE: 12/31/2016 Patient seen and examined. Continues to report mild abdominal pain. Tolerating clear liquid diet. Denies any chest pain, pressure, or discomfort, shortness of breath. VITAL SIGNS: Temperature 97.1, pulse 67, respirations 17, blood pressure 106/64, pulse oximetry 93% on room air. LABORATORY DATA: WBC 6, hemoglobin and hematocrit 11.3/32.3, platelets 239. Chemistry: Sodium 145, potassium 4.5, chloride 113, bicarbonate 23, BUN 11, creatinine 0.64, lipase 139. PHYSICAL EXAMINATION: GENERAL: Patient alert and oriented times three in no acute distress. HEENT: Normocephalic, atraumatic. PULMONARY: Bilaterally clear to auscultation. CARDIAC: Regular rate and rhythm. Normal S1, S2. ABDOMEN: Minimal epigastric tenderness. No rebound. No guarding. Positive bowel sounds. EXTREMITIES: No clubbing, cyanosis, or edema. ASSESSMENT AND PLAN: This is a 36-year-old female patient with underlying medical history of endometriosis, history of resolved hyperthyroidism, transient ischemic attack (TIA), migraine headache, recurrent emesis, colitis, methicillin-resistant Staphylococcus aureus (MRSA), Clostridium (C) difficile, neurogenic bladder, chronic abdominal pain, anxiety, miscarriage, nephrolithiasis, recurrent hydronephrosis and hydroureter, ovarian cyst, myocardiac injury, uterine dysplasia with hysterectomy, urinary tract infection (UTI), recurrent, neuropathy, admitted for acute pancreatitis with nausea, vomiting, abdominal pain, and diarrhea. 1. Nausea, vomiting, diarrhea, and abdominal pain secondary to acute pancreatitis. Followup gastrointestinal (GI) panel, followup electrolytes. Advance diet as tolerated. Intravenous (IV) fluids, Pepcid, pain medication. 2. Left hydroureter with no stone. Case discussed with Dr. Cerrato, urology. Urinalysis (UA) is negative. CT appreciated. Likely patient has passed a stone. Recommend outpatient followup with repeat imaging study as outpatient. Patient has normal kidney function with negative UA. As per Dr. Cerrato, followup outpatient. 3. Transaminitis, likely associated with acute pancreatitis, Currently resolved. CT scan appreciated. Ultrasound of the abdomen appreciated with no common bile duct dilatation. 4. Deep vein thrombosis (DVT) prophylaxis. Heparin subcutaneous. DISPOSITION: Pending clinical improvement. Advance diet as tolerated. Likely discharge in the next 24 hours.
[2016-12-31 22:00] VITALS: BP 117/61
[2016-12-31] MEDS ORDERED: PROMETHAZINE INJ 25 MG/ML VIAL (J2550) IV PRN (23:10)
[2017-01-01] MEDS ORDERED: CEPACOL LOZENGE MT PRN (00:30)
[2017-01-01] MEDS: FAMOTIDINE IV BAG 20 MG in APPROPRIATE DILUENT 1 EA IV SCH (01:21)
[2017-01-01] MEDS: PHENAZOPYRIDINE 100 MG TAB PO SCH ×2 (01:21→11:21)
[2017-01-01] MEDS: HYDROmorphone HCL 1 MG/ML SYRINGE (J1170) IV PRN ×4 (02:31→11:20)
[2017-01-01] MEDS: HEPARIN SOD (PORCINE) 5000 UNITS/ML VIAL SC SCH (05:51)
[2017-01-01] MEDS: KCL 20MEQ in NS 1000ML 1,000 ML IV SCH (07:07)
[2017-01-01 07:13] LABS: ALBUMIN/GLOBULIN RATIO 0.94 (1.00-1.93); ALKALINE PHOSPHATASE 110 U/L (45-117); ALT/SGPT 59 U/L (12-78); ANION GAP 8 MEQ/L (8-16); AST/SGOT 29 U/L (15-37); BILIRUBIN,TOTAL 0.3 MG/DL (0.2-1.0); BLOOD UREA NITROGEN 7 MG/DL (7-18); CALCIUM LEVEL 8.2 MG/DL (8.5-10.1); CARBON DIOXIDE LEVEL 26 MEQ/L (21-32); CHLORIDE LEVEL 110 MEQ/L (98-107); CREATININE FOR GFR 0.74 MG/DL (0.55-1.02); GLOMERULAR FILTRATION RATE > 60.0 (>60); GLUCOSE, FASTING 81 MG/DL (70-105); MAGNESIUM LEVEL 1.9 MG/DL (1.8-2.4); POTASSIUM SERUM 3.8 MEQ/L (3.5-5.1); SODIUM LEVEL 144 MEQ/L (136-145); TOTAL PROTEIN 6.2 GM/DL (6.4-8.2)
[2017-01-01 07:14] LABS: MEAN CORPUSCULAR HEMOGLOBIN 32.1 pg (27.0-33.0); MEAN CORPUSCULAR HGB CONC 34.8 g/dl (32.0-36.5); MEAN CORPUSCULAR VOLUME 92.1 fl (80.0-96.0); RED CELL DISTRIBUTION WIDTH 12.4 % (11.5-14.5); WHITE BLOOD COUNT 6.6 K/mm3 (4.0-10.0)
[2017-01-01 11:14] VITALS: BP 104/58
[2017-01-01 11:18] VITALS: BP 122/72
[2017-01-01 11:20] VITALS: BP 122/72
[2017-01-01] MEDS: FOLIC ACID 1 MG TAB PO SCH (11:20)
[2017-01-01] MEDS: PREGABALIN 100 MG CAP (LYRICA) PO SCH (11:21)
[2017-01-01] MEDS: FERROUS SULFATE 325MG TAB PO SCH (11:21)
[2017-01-01] MEDS: LACTOBACILLUS ACIDOPHILUS CAP (BACID) PO SCH (11:21)
[2017-01-01] MEDS: VITAMIN B COMPLEX/VIT C CAP PO SCH (11:21)
[2017-01-01] MEDS: SENOKOT S TAB PO SCH (11:21)
[2017-01-01] MEDS ORDERED: OXYC1TAB23 PO (11:38)
[2017-01-01] MEDS ORDERED: RISATAB3 PO (11:38)
--- NOTE | 2017-01-01 17:05 | DSES ---
DATE OF ADMISSION: 12/30/2016 DATE OF DISCHARGE: 01/01/2017 PRIMARY CARE PROVIDER: Isiah Ackerman DO UROLOGIST: Rene Cerrato MD FINAL DIAGNOSES: 1. Acute appendicitis. 2. Left hydroureter. 3. Transaminitis. 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, methicillin-sensitive Staphylococcus aureus (MSSA), colitis, nephrolithiasis, neurogenic bladder with hydronephrosis and hydroureter, recurrent urinary tract infection (UTI), peripheral neuropathy, patent foramen ovale that was repaired, presented to the hospital since Thursday prior to admission of nausea, vomiting, diarrhea, and also bilateral flank pain, epigastric pain, and right upper quadrant pain that is, as per patient sharp and persistent, reported chills but no fever detected, maximum temperature 99.8, also reported vomiting over the last 24 hours, five times, nonbloody, nonbilious, watery diarrhea five times as well, as per patient, diarrhea does not appear to be C. difficile and also has resolved over the last 24 hours. Denies any chest pressure, pain or discomfort. HOSPITAL COURSE: In the emergency room, IV was not able to be started and hospitalist, Dr. Nohelia Gray, has placed a triple lumen central line on the patient. Subsequently, patient was started on IV fluids. Lipase was elevated. Patient was diagnosed with acute pancreatitis. CT of the abdomen was done showing left-sided hydroureter with negative urinalysis as well as no stones and negative kidney function. Case was discussed with Dr. Cerrato. As per Dr. Cerrato, patient likely passed a stone and will need repeat imaging as outpatient and followup with urology clinic as outpatient in 10 days. Lipase was followed and resolved. Patient's pain has improved. Currently, patient is tolerating a full liquid diet, but uncomfortable to advance her diet further. Patient denies any chest pain, pressure or discomfort, is comfortable, feeling returning back to normal and ready for discharge for further care as outpatient. VITAL SIGNS: Temperature 97.6, pulse 82, respirations 18, blood pressure 122/72, pulse oximetry 98% on room air. GENERAL: Patient alert and oriented times three, in no acute distress. HEENT: Normocephalic, atraumatic. PULMONARY: Bilaterally clear to auscultation. CARDIAC: Regular rate and rhythm, normal S1, S2. ABDOMEN: Soft, minimal tenderness. Normal bowel sounds. Nondistended. EXTREMITIES: No clubbing, cyanosis, or edema. LABORATORY DATA: WBC 6.6, hemoglobin and hematocrit 11.4/32.9, platelets 262. Chemistry: Sodium 144, potassium 3.8, chloride 110, bicarbonate 26, BUN 7, creatinine 0.74, lipase 150. DISCHARGE MEDICATIONS: - Percocet 5/325 every 6 hours as needed, #20 tablets prescribed, I-STOP was pulled on the patient - probiotics one tablet by mouth twice a day - vitamin B complex by mouth daily - Benadryl 25 mg by mouth every 4 hours as needed - folic acid 1 mg by mouth daily - iron supplement 325 mg by mouth daily - Lyrical 200 mg by three times a day DISCHARGE INSTRUCTIONS: Patient is instructed to followup with primary care provider in 7 days, urologist in 10 days for left hydroureter. Return to the hospital if symptoms worsens. Diet as tolerated.
== END 2017-01-01 13:36 | disposition home or self-care (01) | DRG 439 ==
LOC: M ED 23:15 → M ED INP 12-30 10:17 → M MSPAV 12-30 13:42
PROVIDERS: ADMIT Hospitalist; ATTEND Hospitalist
PROC: 02HV33Z Insertion of Infusion Device into Superior Vena Cava, Percutaneous Approach (ICD-10-PCS; principal; 2016-12-30)
DX: K85.90 Acute pancreatitis without necrosis or infection, unspecified (principal); N13.4 Hydroureter; G43.909 Migraine, unspecified, not intractable, without status migrainosus; N31.9 Neuromuscular dysfunction of bladder, unspecified; F41.9 Anxiety disorder, unspecified; G62.9 Polyneuropathy, unspecified; F17.210 Nicotine dependence, cigarettes, uncomplicated; Z90.710 Acquired absence of both cervix and uterus; Z86.73 Personal history of transient ischemic attack (TIA), and cerebral infarction without residual deficits; Z86.74 Personal history of sudden cardiac arrest; Z86.14 Personal history of Methicillin resistant Staphylococcus aureus infection; Z79.899 Other long term (current) drug therapy; Z88.0 Allergy status to penicillin; Z88.1 Allergy status to other antibiotic agents; Z88.5 Allergy status to narcotic agent; Z88.2 Allergy status to sulfonamides; Z88.8 Allergy status to other drugs, medicaments and biological substances

== ENCOUNTER 2017-01-22 22:54 | Emergency (ER) | payer OTHER ==
[~2017-01-22] VITALS: Ht 162.6 cm; Wt 63.6 kg
[~2017-01-22 22:54] MED LIST changes: +BENA25CA4 PO; +IRON65TA PO; +OXYC1TAB23 PO; +RISATAB3 PO; +VITATAB11 PO
[2017-01-22 22:55] VITALS: BP 138/80
[2017-01-23] MEDS ORDERED: NS 1,000 ML IV ONE (00:45)
[2017-01-23] MEDS ORDERED: METOCLOPRAMIDE INJ 10MG/2ML VIAL (J2765) IV ONE (00:45)
[2017-01-23 01:02] LABS: BASO % 0.5 % (0.0-1.0); EOS # 0.1 K/mm3 (0.0-0.50); EOS % 1.3 % (0.0-3.0); LARGE UNSTAINED CELL # 0.1 K/mm3 (0.0-0.4); LARGE UNSTAINED CELL % 1.4 % (0.0-4.0); LYMPH # 2.1 K/mm3 (1.5-4.5); LYMPH % 25.5 % (24.0-44.0); MEAN CORPUSCULAR HEMOGLOBIN 31.4 pg (27.0-33.0); MEAN CORPUSCULAR HGB CONC 34.7 g/dl (32.0-36.5); MEAN CORPUSCULAR VOLUME 90.5 fl (80.0-96.0); MONO # 0.3 K/mm3 (0.0-0.8); MONO % 2.9 % (0.0-5.0); NEUTROPHILS # 5.7 K/mm3 (1.8-7.7); NEUTROPHILS % 68.4 % (36.0-66.0); PLATELET COUNT, AUTOMATED 282 k/mm3 (150-450); RED CELL DISTRIBUTION WIDTH 12.7 % (11.5-14.5); WHITE BLOOD COUNT 8.3 K/mm3 (4.0-10.0)
[2017-01-23] MEDS: HYDROmorphone HCL 1 MG/ML SYRINGE (J1170) IV PRN ×2 (01:09→02:10)
[2017-01-23 01:33] LABS: ALBUMIN 4.1 GM/DL (3.2-5.2); ALKALINE PHOSPHATASE 119 U/L (45-117); ALT/SGPT 28 U/L (12-78); ANION GAP 7 MEQ/L (8-16); AST/SGOT 16 U/L (15-37); BILIRUBIN,DIRECT 0.1 MG/DL (0.0-0.2); BILIRUBIN,TOTAL 0.5 MG/DL (0.2-1.0); BLOOD UREA NITROGEN 11 MG/DL (7-18); CALCIUM LEVEL 9.2 MG/DL (8.5-10.1); CARBON DIOXIDE LEVEL 25 MEQ/L (21-32); CHLORIDE LEVEL 107 MEQ/L (98-107); CREATININE FOR GFR 0.82 MG/DL (0.55-1.02); GLOMERULAR FILTRATION RATE > 60.0 (>60); GLUCOSE, FASTING 93 MG/DL (70-105); POTASSIUM SERUM 3.8 MEQ/L (3.5-5.1); SODIUM LEVEL 139 MEQ/L (136-145); TOTAL PROTEIN 8.2 GM/DL (6.4-8.2)
[2017-01-23] MEDS ORDERED: ISOVUE-370 76% 100ML VIAL (Q9967) As Ordered ONE (01:58)
--- NOTE | 2017-01-23 03:40 | REPUSA ---
CLINICAL HISTORY: Abdominal pain. TECHNIQUE: Multiple axial, sagittal and coronal CT images were obtained through the abdomen and pelvi s after administration of intravenous contrast material. COMMENTS: The liver is of uniform attenuation without mass or defect. There is mild biliary ductal dilatation. The spleen is normal. The gallbladder is surgically absent. The pancreas is of normal contour and att enuation characteristics. There is no evidence of adrenal mass. Both kidneys demonstrate prompt and equal nephrograms. The kidneys are normal in size, shape and conf iguration. There is no evidence of renal or ureteral mass. No renal or ureteral calculi are identifie d. There is no hydroureter or hydronephrosis. Mildly dilated left extrarenal pelvis. No evidence for appendicitis. There is no bowel wall thickening. No evidence for small or large delfina l obstruction. There is no evidence of abdominal ascites or lymphadenopathy. Fluid-filled small bowel s. There is no evidence of intrinsic or extrinsic bladder mass. There is no pelvic ascites or lymphadeno myriam. Prior hysterectomy. Mild diffuse thickening of the wall of the bladder. Images of the lung bases show no evidence of pleural or parenchymal mass. There are no pleural effusi ons. The bony structures are free of lytic or blastic lesions. Fat containing umbilical hernia without incarceration. IMPRESSION: Prior cholecystectomy. Mildly dilated biliary tree. Hysterectomy. Fluid-filled small bowels. Mild ileus versus developing enteritis. Mild diffuse thickening of the wall of the bladder. Underdistention versus mild cystitis. Mildly dilated left extrarenal pelvis. Thank you for your kind referral of this patient.
[2017-01-23] MEDS ORDERED: PERC5TAB12 PO (03:54)
[2017-01-23] MEDS ORDERED: OXYCODONE/APAP 5MG/325MG(BULK FOR ED) 1 TABLET PO ONE (04:00)
--- NOTE | 2017-01-23 08:06 | ED PDOC ---
Post-Departure Follow-Up radiology report faxed to Leandra Chinchilla MD Jan 23, 2017 08:06
== END 2017-01-23 04:08 | disposition home or self-care (01) ==
LOC: M ED 22:54
DX: R10.9 Unspecified abdominal pain (principal); G89.29 Other chronic pain; Z87.442 Personal history of urinary calculi; Z88.1 Allergy status to other antibiotic agents; Z88.8 Allergy status to other drugs, medicaments and biological substances; Z88.5 Allergy status to narcotic agent; Z88.0 Allergy status to penicillin; Z88.2 Allergy status to sulfonamides; Z87.19 Personal history of other diseases of the digestive system
CPT/HCPCS: 74177; 80048; 80076; 81001; 83605; 83690; 85025; 87040; 87086; 93041; 96374; 96375; 96376; 99284; J1170; J2765; Q9967